=== PATIENT | female | born 1965 | race Caucasian/White ===

== ENCOUNTER 2016-11-09 11:15 | Observation (INO) | payer OTHER ==
[2016-11-09] MEDS ORDERED: NORMAL SALINE 1000 ML 1,000 ML IV ONE ×2 (11:53→18:26)
[2016-11-09] MEDS ORDERED: METRONIDAZOLE 500 MG/NS RTU 100 ML IV ONE (11:54)
[2016-11-09] MEDS ORDERED: LEVOFLOXACIN 500 MG/D5W RTU 100 ML IV ONE (11:54)
--- NOTE | 2016-11-09 12:16 | ER Document Report ---
ED General - General Chief Complaint: Post Surgical Pain Stated Complaint: POST OP PROBLEMS TRAVEL OUTSIDE OF THE [place] IN LAST 30 DAYS: No - HPI Patient complains to provider of: throat pain Notes: Patient was having a gastric bubble in place for dietary concerns removed today at a local GI's office during the procedure removal observe some difficulty and apparently cause a significant scratching the patient's throat. Dr Childers patient's GI physician did discuss were hospitalist for admission for airway observation. Patient was referred to the ER for initial evaluation. Upon the patient's arrival here patient resting comfortably with normal vital signs complaining of throat pain no difficulty breathing no difficulty in swallowing. - Related Data Allergies/Adverse Reactions: tetracycline [Tetracycline] Allergy (Severe, Verified 11/09/16 11:37) Generalized Itching wheat [Wheat] Allergy (Severe, Verified 11/09/16 11:37) amoxicillin [Amoxicillin] Adverse Reaction (Severe, Verified 11/09/16 11:37) Generalized Itching Past Medical History - Social History Smoking Status: Unknown if Ever Smoked Family History: CVA, DM, Hyperlipidemia, Malignancy - Past Medical History Cardiac Medical History: Reports: Hx Hypercholesterolemia, Hx Hypertension Denies: Hx Coronary Artery Disease, Hx Heart Attack Pulmonary Medical History: Reports: Hx Bronchitis - 2011, Hx Pneumonia - 2011 Denies: Hx Asthma, Hx COPD Neurological Medical History: Reports: Hx Migraine. Denies: Hx Cerebrovascular Accident, Hx Seizures Endocrine Medical History: Reports: Hx Hypothyroidism Renal/ Medical History: Reports: Hx Kidney Stones GI Medical History: Reports: Hx Irritable Bowel Musculoskeltal Medical History: Denies Hx Arthritis, Reports Hx Musculoskeletal Trauma Traumatic Medical History: Reports: Hx Fractures Past Surgical History: Reports: Hx Cholecystectomy, Hx Gynecologic Surgery - endometriosis surgery over 20 yrs ago, Hx Kidney (Renal Surgery) - stone. Denies: Hx Hysterectomy, Hx Pacemaker - Immunizations Immunizations up to date: Yes Hx Diphtheria, Pertussis, Tetanus Vaccination: Yes - 09/06/12 Hx Pneumococcal Vaccination: 09/06/00 Review of Systems - Review of Systems Constitutional: No symptoms reported EENT: Throat pain Cardiovascular: No symptoms reported Respiratory: No symptoms reported Gastrointestinal: No symptoms reported Genitourinary: No symptoms reported Female Genitourinary: No symptoms reported Musculoskeletal: No symptoms reported Skin: No symptoms reported Hematologic/Lymphatic: No symptoms reported Neurological/Psychological: No symptoms reported -: Yes All other systems reviewed and negative Physical Exam - Vital signs Vitals: Resp 16 11/09/16 11:15 Interpretation: Normal - General General appearance: Appears well, Alert - HEENT Head: Normocephalic, Atraumatic Eyes: Normal Conjunctiva: Normal Cornea: Normal Extraocular movements intact: Yes Eyelashes: Normal Pupils: PERRL Sinus: Normal, Swelling Mouth/Lips: Normal Mucous membranes: Normal Pharynx: Normal Neck: Normal - Respiratory Respiratory status: No respiratory distress Chest status: Nontender Breath sounds: Normal Chest palpation: Normal - Cardiovascular Rhythm: Regular Heart sounds: Normal auscultation Murmur: No - Abdominal Inspection: Normal Distension: No distension Bowel sounds: Normal Tenderness: Nontender Organomegaly: No organomegaly - Back Back: Normal, Nontender - Extremities General upper extremity: Normal inspection, Nontender, Normal color, Normal ROM , Normal temperature General lower extremity: Normal inspection, Nontender, Normal color, Normal ROM , Normal temperature, Normal weight bearing. No: Anika's sign - Neurological Neuro grossly intact: Yes Cognition: Normal Orientation: AAOx4 [place] Coma Scale Eye Opening: Spontaneous [place] Coma Scale Verbal: Oriented Dinesh Coma Scale Motor: Obeys Commands Dinesh Coma Scale Total: 15 Speech: Normal Motor strength normal: LUE, RUE, LLE, RLE Sensory: Normal - Psychological Associated symptoms: Normal affect, Normal mood - Skin Skin Temperature: Warm Skin Moisture: Dry Skin Color: Normal Course - Re-evaluation Re-evalutation: 11/09/16 15:45 Discussed with the hospitalist. Will admit to [facility]. Due to difficulty I was needed to place an IV in the patient's right before meals. This was done without difficulty. Patient will be covered with Levaquin and Flagyl per the hospitalist. Also undergo a CT scan of the neck patient will be admitted to the IMCU. - Vital Signs Vital signs: Temp Pulse Resp BP Pulse Ox 98.7 F 102 H 17 146/95 H 95 11/09/16 14:02 11/09/16 14:24 11/09/16 15:00 11/09/16 14:02 11/09/16 15:00 - Laboratory Result Diagrams: 11/09/16 13:56 11/09/16 13:56 Procedures - Additional Procedures IV placement Notes: 11/09/16 15:46 Using bedside ultrasound an IV was placed in the patient's right antecubital without difficulty Discharge - Discharge Clinical Impression: postop throat pain Disposition: ADMITTED OBSERVATION Admitting Provider: [facility] Hospitalist [facility] Unit Admitted: [place]
[2016-11-09] MEDS ORDERED: ONDANSETRON HCL INJ/PF 4 MG/2 ML SDV IV ONE (12:37)
[2016-11-09] MEDS ORDERED: PROCHLORPERAZINE EDISYLATE INJ 10 MG/2 ML VIAL IV ONE (12:37)
[2016-11-09] MEDS ORDERED: PROMETHAZINE HCL 25 MG SUPP.RECT PR PRN (13:34)
[2016-11-09] MEDS ORDERED: ONDANSETRON HCL INJ/PF 4 MG/2 ML SDV IV PRN (13:34)
[2016-11-09] MEDS ORDERED: ACETAMINOPHEN 325 MG TABLET PO PRN (13:34)
[2016-11-09] MEDS ORDERED: NORMAL SALINE 1000 ML 1,000 ML IV PRN (13:34)
[2016-11-09] MEDS ORDERED: LEVALBUTEROL HCL NEB 1.25 MG/3 ML AMPUL NEB PRN (13:34)
[2016-11-09] MEDS ORDERED: METOCLOPRAMIDE HCL ORAL SOLN 10 MG/10 ML UDCUP PO ONE (13:42)
[2016-11-09] MEDS ORDERED: LIDOCAINE 2% VISCOUS SOLN 20 ML UDCUP PO PRN (13:42)
[2016-11-09] MEDS ORDERED: MAG HYDROX/AL HYDROX/SIMETH SUSP 30 ML UDCUP PO PRN (13:42)
[2016-11-09] MEDS ORDERED: METOCLOPRAMIDE HCL ORAL SOLN 10 MG/10 ML UDCUP PO PRN (13:42)
[2016-11-09] MEDS ORDERED: LIDOCAINE 2% VISCOUS SOLN 20 ML UDCUP PO ONE (14:00)
[2016-11-09] MEDS ORDERED: MAG HYDROX/AL HYDROX/SIMETH SUSP 30 ML UDCUP PO ONE (14:00)
[2016-11-09] MEDS ORDERED: PANTOPRAZOLE SODIUM 40 MG VIAL IV ONE (14:00)
[2016-11-09] MEDS ORDERED: DEXAMETHASONE SOD PHOS INJ 10 MG/1 ML VIAL IV ONE (14:00)
[2016-11-09 14:15] LABS: ABSOLUTE LYMPHOCYTES (AUTO) 0.8 10^3/uL (0.5-4.7); ABSOLUTE MONOCYTES (AUTO) 0.1 10^3/uL (0.1-1.4); ABSOLUTE NEUT (AUTO) 10.3 10^3/uL (1.7-8.2); BASOPHILS % (AUTO) 0.3 % (0-2); EOSINOPHILS % (AUTO) 0.3 % (0-6); MEAN CORPUSCULAR HEMOGLOBIN 29.6 pg (27.0-33.4); MEAN CORPUSCULAR HGB CONC 33.4 g/dL (32.0-36.0); MEAN CORPUSCULAR VOLUME 89 fl (80-97); RED BLOOD COUNT 5.08 10^6/uL (3.72-5.28); RED CELL DISTRIBUTION WIDTH 14.2 % (11.5-14.0); SEGMENTED NEUTROPHILS % (AUTO) 91.4 % (42-78); WHITE BLOOD COUNT 11.2 10^3/uL (4.0-10.5)
[2016-11-09 14:25] LABS: ANION GAP 15 (5-19); BLOOD UREA NITROGEN 15 mg/dL (7-20); CALCIUM 9.8 mg/dL (8.4-10.2); CARBON DIOXIDE 23 mmol/L (22-30); CHLORIDE 103 mmol/L (98-107); CREATININE RESULT 0.81 mg/dL (0.52-1.25); GLUCOSE 125 mg/dL (75-110); LIPASE 112.4 U/L (23-300); POTASSIUM 4.3 mmol/L (3.6-5.0); SODIUM 141.2 mmol/L (137-145)
[2016-11-09] MEDS: MORPHINE SULFATE 10 MG/ML INJ IV PRN ×2 (17:07→23:26)
[2016-11-09] MEDS ORDERED: CALCIUM CITRATE PO SCH (18:00)
[2016-11-09] MEDS ORDERED: [UNRECOGNIZED DRUG - OTHER] PO SCH (18:00)
[2016-11-09] MEDS ORDERED: VITAMIN D3 PO SCH (18:00)
--- NOTE | 2016-11-09 19:38 | PDOC H&P ---
History of Present Illness Admission Date/PCP: 11/09/16 13:34 VIRAJ WILDER MD History of Present Illness: MATTHEW DUMAS is a 51 year old female who presents to the emergency department from Dr[facility] where patient had her intragastric balloon for weight loss removed. Patient developed complication requiring intubation and subsequent re-extubation there. Please see his operative note for complete details of this complication. Patient complains of a worst sore throat of her life. She denies any chest pain or shortness of breath. Patient reports she did not take her Synthroid this morning. Patient is referred to the hospitalist service for observation for possible airway compromise. Past Medical History Cardiac Medical History: Reports: Hyperlipidema, Hypertension Denies: Coronary Artery Disease, Myocardial Infarction Pulmonary Medical History: Reports: Bronchitis - 2011, Pneumonia - 2011 Denies: Asthma, Chronic Obstructive Pulmonary Disease (COPD) Neurological Medical History: Reports: Migraine Denies: Seizures Endocrine Medical History: Reports: Hypothyroidism GI Medical History: Reports: Other - IBS Recent intragastric balloon for weight loss Musculoskeltal Medical History: Denies: Arthritis Hematology: Reports: Anemia - IRON DEFICIENT Past Surgical History Past Surgical History: Reports: Cholecystectomy Denies: Hysterectomy, Pacemaker Social History Smoking Status: Never Smoker Frequency of Alcohol Use: Occasional Hx Recreational Drug Use: No Hx Prescription Drug Abuse: No - Advance Directive Resuscitation Status: Full Code Surrogate healthcare decision maker:: , surrogate decision maker Family History Family History: CVA, DM, Hyperlipidemia, Malignancy Parental Family History Reviewed: Yes Children Family History Reviewed: Yes Sibling(s) Family History Reviewed.: Yes Medication/Allergy Home Medications: Calcium Citrate/Vitamin D3 [Calcium Cit-Vit D 250-200 Tab] 2 tab PO BID Dexlansoprazole [Dexilant 60 mg Capsule] 60 mg PO DAILY 11/09/16 Duloxetine HCl [Cymbalta 20 mg Capsule.dr] 20 mg PO Q12 11/09/16 Fluoxetine HCl [Prozac 20 mg Capsule] 20 mg PO DAILY 11/09/16 Levothyroxine Sodium [Synthroid 0.05 mg Tablet] 50 mcg PO DAILY 11/09/16 Meloxicam [Mobic 7.5 mg Tablet] 7.5 mg PO DAILYP PRN 11/09/16 Omeprazole 40 mg PO BIDACBS 11/09/16 Sucralfate [Carafate Susp 1 gm/10 ml Udcup] 1 gm PO ACHS 11/09/16 Telmisartan/Hydrochlorothiazid [Telmisartan-Hctz 80-12.5 mg Tb] 1 tab PO DAILY 11/09/16 Allergies/Adverse Reactions: tetracycline [Tetracycline] Allergy (Severe, Verified 11/09/16 11:37) Generalized Itching wheat [Wheat] Allergy (Severe, Verified 11/09/16 11:37) amoxicillin [Amoxicillin] Adverse Reaction (Severe, Verified 11/09/16 11:37) Generalized Itching Review of Systems Constitutional: ABSENT: chills, fever(s), headache(s), weight gain, weight loss Eyes: ABSENT: visual disturbances Ears: ABSENT: hearing changes Nose, Mouth, and Throat: PRESENT: mouth pain, sore throat Cardiovascular: ABSENT: chest pain, dyspnea on exertion, edema, orthropnea, palpitations Respiratory: ABSENT: cough, hemoptysis Gastrointestinal: PRESENT: dysphagia, heartburn, nausea. ABSENT: abdominal pain , constipation, diarrhea, hematemesis, hematochezia, melena, vomiting Genitourinary: ABSENT: dysuria, hematuria Musculoskeletal: ABSENT: joint swelling Integumentary: ABSENT: rash, wounds Neurological: ABSENT: abnormal gait, abnormal speech, confusion, dizziness, focal weakness, syncope Psychiatric: ABSENT: anxiety, depression, homidical ideation, suicidal ideation Endocrine: ABSENT: cold intolerance, heat intolerance, polydipsia, polyuria Hematologic/Lymphatic: ABSENT: easy bleeding, easy bruising Physical Exam Vital Signs: Temp Pulse Resp BP Pulse Ox 97.4 F 76 13 139/95 H 99 11/09/16 11:23 11/09/16 11:23 11/09/16 13:00 11/09/16 12:41 11/09/16 13:00 General appearance: PRESENT: no acute distress, well-developed, well-nourished Head exam: PRESENT: atraumatic, normocephalic Eye exam: PRESENT: conjunctiva pink, EOMI, PERRLA. ABSENT: scleral icterus Ear exam: PRESENT: normal external ear exam. ABSENT: TM's normal bilaterally - bilateral serous effusion, left TM bulging TM, no erythema, Mouth exam: PRESENT: moist, tongue midline. ABSENT: neck supple - Patient with bilateral anterior cervical neck tenderness, right submandibular tenderness, Throat exam: PRESENT: post pharyngeal erythema, other - Posterior pharyngeal edema Neck exam: PRESENT: lymphadenopathy, tenderness - Bilateral submandibular, anterior cervical. ABSENT: JVD, thyromegaly, tracheal deviation Respiratory exam: PRESENT: clear to auscultation raphael. ABSENT: rales, rhonchi, wheezes Cardiovascular exam: PRESENT: RRR, +S1, +S2, tachycardia. ABSENT: diastolic murmur, gallop, rubs, systolic murmur Pulses: PRESENT: normal dorsalis pedis pul Vascular exam: PRESENT: normal capillary refill GI/Abdominal exam: PRESENT: hypoactive bowel sounds, soft. ABSENT: distended, firm, guarding, mass, Ortiz's sign, organolmegaly, rebound, rigid, tenderness Rectal exam: PRESENT: deferred Extremities exam: PRESENT: full ROM. ABSENT: calf tenderness, clubbing, pedal edema Neurological exam: PRESENT: alert, awake, oriented to person, oriented to place , oriented to time, oriented to situation, CN II-XII grossly intact. ABSENT: motor sensory deficit Psychiatric exam: PRESENT: appropriate affect, normal mood. ABSENT: homicidal ideation, suicidal ideation Skin exam: PRESENT: dry, intact, warm. ABSENT: cyanosis, rash Results Laboratory Results: 11/09/16 13:56 11/09/16 13:56 11/09/16 11/09/16 13:56 13:56 WBC 11.2 H RBC 5.08 Hgb 15.0 Hct 45.0 MCV 89 MCH 29.6 MCHC 33.4 RDW 14.2 H Plt Count 230 Seg Neutrophils % 91.4 H Lymphocytes % 7.0 L Monocytes % 1.0 L Eosinophils % 0.3 Basophils % 0.3 Absolute Neutrophils 10.3 H Absolute Lymphocytes 0.8 Absolute Monocytes 0.1 Absolute Eosinophils 0.0 Absolute Basophils 0.0 Sodium 141.2 Potassium 4.3 Chloride 103 Carbon Dioxide 23 Anion Gap 15 BUN 15 Creatinine 0.81 Est GFR ( Amer) > 60 Est GFR (Non-Af Amer) > 60 Glucose 125 H Calcium 9.8 Lipase 112.4 Assessment & Plan - Diagnosis (1) posterior pharyngeal trauma Is this a current diagnosis for this admission?: YesPlan: Have consulted both ENT as well as surgery. CT of the neck reveals free air. Will obtain CT of the chest and chest x-ray for evaluation for esophageal perforation. Place patient on Levaquin and Flagyl for coverage of GI sarina. Will give one dose of IV Decadron for patient's posterior pharyngeal swelling. (2) Hypertension Qualifiers: Hypertension type: essential hypertension Qualified Code(s): I10 - Essential (primary) hypertension Is this a current diagnosis for this admission?: YesPlan: We'll place when necessary hydralazine. Patient currently nothing by mouth but reports having taken one of her antihypertensives. (3) Hyperlipidemia Qualifiers: Hyperlipidemia type: unspecified Qualified Code(s): E78.5 - Hyperlipidemia, unspecified Is this a current diagnosis for this admission?: NoPlan: Continue home medication (4) Prediabetes Is this a current diagnosis for this admission?: Yes (5) Leukocytosis Qualifiers: Leukocytosis type: unspecified Qualified Code(s): D72.829 - Elevated white blood cell count, unspecified Is this a current diagnosis for this admission?: YesPlan: Have discussed with Dr. Cooper and will place patient on Levaquin and Flagyl to cover most GI pathogens. (6) obesity Is this a current diagnosis for this admission?: Yes (7) DVT prophylaxis Is this a current diagnosis for this admission?: YesPlan: DVT prophylaxis is with ANDREI hose. Patient is ambulatory and anticipate length of stay is less than 24 hours. - Time Time Spent: Greater than 70 Minutes Medications reviewed and adjusted accordingly: Yes Anticipated discharge: Home Within: within 48 hours - Inpatient Certification Based on my medical assessment, after consideration of the patient's comorbidities, presenting symptoms, or acuity I expect that the services needed warrant INPATIENT care.: No I certify that my determination is in accordance with my understanding of Medicare's requirements for reasonable and necessary INPATIENT services [42 CFR 412.3e].: No Medical Necessity: Need For IV Fluids, Need For Continuous Telemetry Monitoring , Need for Pain Control 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
--- NOTE | 2016-11-09 19:58 | PDOC CONSULTATION ---
Consultation Consult Date: 11/09/16 Attending physician:: MONTSERRAT CURRY Consult reason:: SQ air History of Present Illness Admission Date/PCP: 11/09/16 13:34 VIRAJ WILDER MD History of Present Illness: MATTHEW DUMAS is a 51 year old female who presents to the emergency department from Dr[facility] where patient had her intragastric balloon for weight loss removed. Patient developed complication requiring intubation and subsequent re-extubation there. Please see his operative note for complete details of this complication. Patient complains of a worst sore throat of her life. She denies any chest pain or shortness of breath. Patient reports she did not take her Synthroid this morning. Patient is referred to the hospitalist service for observation for possible airway compromise. Since in the emergency department patient developed difficulty swallowing, and soreness in the right side of her neck. She had a CT scan of the chest which showed no air in the mediastinum and no fluid in the left chest. The CT slices stopped at the apex of the chest. Neck was not visualized. At bedside now the patient is being examined by the ENT service. Past Medical History Cardiac Medical History: Reports: Hyperlipidema, Hypertension Denies: Coronary Artery Disease, Myocardial Infarction Pulmonary Medical History: Reports: Bronchitis - 2011, Pneumonia - 2011 Denies: Asthma, Chronic Obstructive Pulmonary Disease (COPD) Neurological Medical History: Reports: Migraine Denies: Seizures Endocrine Medical History: Reports: Hypothyroidism GI Medical History: Reports: Other - IBS Recent intragastric balloon for weight loss Musculoskeltal Medical History: Denies: Arthritis Hematology: Reports: Anemia - IRON DEFICIENT Past Surgical History Past Surgical History: Reports: Cholecystectomy Denies: Hysterectomy, Pacemaker Social History Smoking Status: Never Smoker Frequency of Alcohol Use: Occasional Hx Recreational Drug Use: No Hx Prescription Drug Abuse: No - Advance Directive Resuscitation Status: Full Code Family History Family History: CVA, DM, Hyperlipidemia, Malignancy Parental Family History Reviewed: Yes Children Family History Reviewed: Yes Sibling(s) Family History Reviewed.: Yes Medication/Allergy Home Medications: Calcium Citrate/Vitamin D3 [Calcium Cit-Vit D 250-200 Tab] 2 tab PO BID Dexlansoprazole [Dexilant 60 mg Capsule] 60 mg PO DAILY 11/09/16 Duloxetine HCl [Cymbalta 20 mg Capsule.] 20 mg PO Q12 11/09/16 Fluoxetine HCl [Prozac 20 mg Capsule] 20 mg PO DAILY 11/09/16 Levothyroxine Sodium [Synthroid 0.05 mg Tablet] 50 mcg PO DAILY 11/09/16 Meloxicam [Mobic 7.5 mg Tablet] 7.5 mg PO DAILYP PRN 11/09/16 Omeprazole 40 mg PO BIDACBS 11/09/16 Sucralfate [Carafate Susp 1 gm/10 ml Udcup] 1 gm PO ACHS 11/09/16 Telmisartan/Hydrochlorothiazid [Telmisartan-Hctz 80-12.5 mg Tb] 1 tab PO DAILY 11/09/16 Allergies/Adverse Reactions: tetracycline [Tetracycline] Allergy (Severe, Verified 11/09/16 11:37) Generalized Itching wheat [Wheat] Allergy (Severe, Verified 11/09/16 11:37) amoxicillin [Amoxicillin] Adverse Reaction (Severe, Verified 11/09/16 11:37) Generalized Itching Review of Systems Constitutional: PRESENT: as per HPI Eyes: PRESENT: as per HPI Ears: PRESENT: as per HPI Nose, Mouth, and Throat: PRESENT: as per HPI Physical Exam Vital Signs: Temp Pulse Resp BP Pulse Ox 98.7 F 102 H 17 128/87 H 92 11/09/16 14:02 11/09/16 14:24 11/09/16 18:01 11/09/16 18:01 11/09/16 18:01 General appearance: PRESENT: mild distress Head exam: PRESENT: normocephalic Eye exam: PRESENT: EOMI Mouth exam: PRESENT: other - Some swelling of the pharynx. No obvious bleeding. There is a subtle suggestion of subcutaneous emphysema on the right side of the neck. Neck exam: PRESENT: full ROM Respiratory exam: PRESENT: clear to auscultation raphael Cardiovascular exam: PRESENT: RRR Pulses: PRESENT: normal carotid pulses, normal radial pulses, normal femoral pulses GI/Abdominal exam: PRESENT: other - Soft nontender. Scars consistent previous surgery. Results Laboratory Results: 11/09/16 13:56 11/09/16 13:56 11/09/16 11/09/16 13:56 13:56 WBC 11.2 H RBC 5.08 Hgb 15.0 Hct 45.0 MCV 89 MCH 29.6 MCHC 33.4 RDW 14.2 H Plt Count 230 Seg Neutrophils % 91.4 H Lymphocytes % 7.0 L Monocytes % 1.0 L Eosinophils % 0.3 Basophils % 0.3 Absolute Neutrophils 10.3 H Absolute Lymphocytes 0.8 Absolute Monocytes 0.1 Absolute Eosinophils 0.0 Absolute Basophils 0.0 Sodium 141.2 Potassium 4.3 Chloride 103 Carbon Dioxide 23 Anion Gap 15 BUN 15 Creatinine 0.81 Est GFR ( Amer) > 60 Est GFR (Non-Af Amer) > 60 Glucose 125 H Calcium 9.8 Lipase 112.4 Impressions: Chest CT 11/09/16 00:00 IMPRESSION: NO SIGNIFICANT FINDING ON NON-CONTRASTED CHEST CT. Chest X-Ray 11/09/16 00:00 IMPRESSION: Minimal subsegmental atelectasis in the left lung base. No pneumomediastinum or pneumothorax. Soft Tissue Neck CT 11/09/16 11:51 IMPRESSION: Gas in the right floor of the mouth consistent with infectious process, probably dental origin. Clinical correlation is needed. If not dental origin, ENT consultation is recommended. Assessment & Plan - Diagnosis (1) posterior pharyngeal trauma Is this a current diagnosis for this admission?: YesPlan: 1. The impression is limited hypopharyngeal trauma following instrumentation of the oropharynx and esophagus status post weight loss balloon extraction. The patient is symptomatic but has limited findings on physical examination. The CT scan of the chest does not suggest mid or lower esophageal injury. 2. Agree with ENT oral pharyngeal examination. 3. I spoke with Dr. Moreland. Patient should be admitted to the hospital for observation, nothing by mouth status, IV fluids and intravenous antibiotics. The patient will likely improve clinically with no further intervention however cautious observation is recommended. - Time Time Spent: 50 to 70 Minutes Critical Time spent with patient: 15-24 minutes
[2016-11-09] MEDS: SUCRALFATE SUSP 1 GM/10 ML UDCUP PO SCH (21:56)
[2016-11-09] MEDS: DULOXETINE HCL 20 MG CAPSULE.DR PO SCH (21:59)
[2016-11-09] MEDS: METRONIDAZOLE 500 MG/NS RTU 100 ML IV SCH ×2 (22:02→23:26)
[2016-11-09] MEDS: LANSOPRAZOLE 15 MG TAB.RAP.DR PO SCH (22:02)
[2016-11-09] MEDS: NORMAL SALINE 1000 ML 1,000 ML IV PRN (23:31)
[2016-11-10] MEDS: METRONIDAZOLE 500 MG/NS RTU 100 ML IV SCH ×4 (05:12→23:53)
[2016-11-10] MEDS: LANSOPRAZOLE 15 MG TAB.RAP.DR PO SCH ×2 (05:15→16:14)
[2016-11-10 06:45] LABS: ABSOLUTE LYMPHOCYTES (AUTO) 1.1 10^3/uL (0.5-4.7); ABSOLUTE MONOCYTES (AUTO) 0.6 10^3/uL (0.1-1.4); ABSOLUTE NEUT (AUTO) 8.1 10^3/uL (1.7-8.2); BASOPHILS % (AUTO) 0.2 % (0-2); HGB HCT DIFFERENCE 0.8; LYMPHOCYTES % (AUTO) 11.5 % (13-45); MEAN CORPUSCULAR HEMOGLOBIN 29.8 pg (27.0-33.4); MEAN CORPUSCULAR HGB CONC 34.1 g/dL (32.0-36.0); MEAN CORPUSCULAR VOLUME 87 fl (80-97); MONOCYTES % (AUTO) 5.6 % (3-13); RED BLOOD COUNT 4.24 10^6/uL (3.72-5.28); RED CELL DISTRIBUTION WIDTH 14.1 % (11.5-14.0); SEGMENTED NEUTROPHILS % (AUTO) 82.7 % (42-78); WHITE BLOOD COUNT 9.8 10^3/uL (4.0-10.5)
[2016-11-10 06:56] LABS: HEMOGLOBIN 12.6 g/dL (12.0-15.5)
[2016-11-10] MEDS: SUCRALFATE SUSP 1 GM/10 ML UDCUP PO SCH ×4 (07:06→21:25)
[2016-11-10] MEDS: LEVOFLOXACIN 750 MG/D5W RTU 150 ML IV SCH (09:28)
[2016-11-10] MEDS: FLUOXETINE HCL 20 MG CAPSULE PO SCH (09:29)
[2016-11-10] MEDS: CALCIUM CARBONATE 250 MG/VITAMIN D3 125 UNIT TABLET PO SCH ×2 (09:29→17:39)
[2016-11-10] MEDS: LOSARTAN POTASSIUM 50 MG TABLET PO SCH (09:29)
[2016-11-10] MEDS: HYDROCHLOROTHIAZIDE 12.5 MG CAPSULE PO SCH (09:29)
[2016-11-10] MEDS: LEVOTHYROXINE SODIUM 0.05 MG TABLET PO SCH (09:29)
[2016-11-10] MEDS: DULOXETINE HCL 20 MG CAPSULE.DR PO SCH ×2 (09:29→21:25)
[2016-11-10] MEDS ORDERED: (PENDING PHARMACY ID) (Telmisartan/Hydrochlorothiazid [Telmisartan-Hctz 80-12.5 Mg Tb] 1 T PO SCH (10:00)
--- NOTE | 2016-11-10 10:33 | CONSULTATION REPORT E ---
Consultation Report NAME: MATTHEW DUMAS : 1965 AGE: 51Y DATE: 11/09/2016 331 A TO: ALEKSANDRA RAMON M.D. FROM: MONTSERRAT CURRY M.D. Requesting Physician REASON FOR CONSULTATION: Free air in the soft tissues of the pharynx. HISTORY OF PRESENT ILLNESS: Otolaryngology was asked to see this 51-year-old lady by Dr. Curry in the emergency department. This is a 51-year-old lady who had undergone removal of an [employer] balloon earlier on 11/09/[address] Ezequiel Childers. This had been done under deep sedation. Apparently, as this was being retrieved, there was a holdup during the extraction of the deflated balloon at about the level of the upper esophageal sphincter/cricopharyngeus area. The balloon became detached from the instrument and therefore, in order to relax the area, it was decided to intubate the patient. Accordingly general anesthesia was induced and an oral endotracheal tube was placed. Once that had been done, there was no further difficulty in retrieving the balloon and it was extracted promptly. Apparently it was reported that there was evidence of "soft tissue trauma and mild bleeding" at the time. Ciprofloxacin 400 mg was given intravenously during the procedure. Following all this, the patient was extubated without difficulty but because of the "abrasion" in the throat, when the patient was extubated and the level of pain that she had once she was awake, it was decided to transfer the patient from the office area to the emergency department. Dr. Curry evaluated the patient and decided to perform a contrast-enhanced axial CT scan of the soft tissues of the neck and she discussed this with Otolaryngology. That study was then reviewed remotely, and there was evidence of free air around the right mandible extending into the submandibular space and the soft tissues of the right pharynx, above the level of the vocal cords. Subsequent telephone conversation with Dr. Curry took place, and, rather than merely provide a 'telephone Consult', as had been agreed upon earlier, she requested that Otolaryngology formally consult on the patient in the emergency department. When the patient was seen, she appeared comfortable. She was lying in a semirecumbent position in the emergency department procedure room #3. Her was in attendance. Dr. Kraus also had been called and he arrived simultaneously. In the interval between the telephone conversation with Dr. Curry and this point in time, a chest CT scan had been performed, so Dr. Kraus and Otolaryngology reviewed that study synchronously. It appeared that no additional abnormality was evident on the chest CT. Specifically, there was no evidence of pneumatomediastinum or pneumothorax. PHYSICAL EXAMINATION: The patient was then examined. She was in no obvious distress apart from pain and tenderness in the right submandibular and parotid triangles. Specifically, there was no hoarseness, hot-potato voice, cough, drooling, trismus or stridor. In the head and neck region, the pupils were noted to be intact and reacting to light and accommodation. Cranial nerves III-XII were grossly intact. External ocular movements were full and equal. No nystagmus was detected. The ear canals were clear. Tympanic membranes appeared intact, translucent and delicate. Fork testing at 512 hertz was normal. The nose was clear. Oral exam revealed submucosal ecchymosis around the anterior pillar of the right tonsil, extending down to the retromolar trigone area and the adjacent junctional area of the posterior one-third and anterior two-thirds of the tongue on its lateral aspect. The tongue protrudes in the midline. The edges of the tongue are somewhat crenated from abutment with the lower teeth. The uvula and soft palate were normal and elevated in the midline. Indirect laryngoscopy was then performed and the true vocal cords were noted to move equally and well, and there did not appear to be extension of the submucosal bruising down the right pharyngeal wall or down into the larynx. Examination of the neck revealed tenderness in the right carotid and submandibular triangles. There could be air in the deeper soft tissues but certainly the palpation of the skin did not give the characteristic "Rice Krispy" effect of subcutaneous air. IMPRESSION: The impression is that there has been a mucosal laceration in the region of the cricopharyngeus on the right-hand side with air extravasation into the soft tissues together with bruising. RECOMMENDATION: The recommendation is for conservative management of this situation. Elevation of the head of the bed to 30 degrees is suggested. Judicious incremental advancement of her diet from fluids to soft foods would be in order. Close watch should be maintained on the patient's temperature. Any spikes in temperature should be reported immediately. Should there be any complications or deterioration in her condition, please feel free to call the Otolaryngology service through the office number, . DICTATING PHYSICIAN: ALEKSANDRA RAMON M.D. [id number] PHY#: [id number] ID: [id number] JOB#: [id number] ACCT: [id number] cc:ALEKSANDRA RAMON M.D. > MTDD
--- NOTE | 2016-11-10 10:34 | PDOC PROGRESS REPORT ---
Subjective Progress Note for:: 11/10/16 Subjective:: Patient states that her pain with swallowing has much improved from yesterday. Patient denies fever, chills, headache, new focal weakness, chest pain, shortness of breath, abdominal pain, nausea, vomiting, diarrhea, constipation. Patient was seen by Dr. Cervantes of ENT and advised to take a liquid diet for the next 24 hours. Physical Exam Vital Signs: Temp Pulse Resp BP Pulse Ox 97.6 F 62 18 122/70 98 11/10/16 07:13 11/10/16 08:49 11/10/16 07:13 11/10/16 07:13 11/10/16 07:13 Intake & Output 11/09/16 11/10/16 11/11/16 06:59 06:59 06:59 Intake Total 1129 Balance 1129 Weight 83.1 kg GENERAL: No acute distress HEENT: Conjunctiva clear, nonicteric, moist mucous membranes, no JVD, midline trachea. No crepitus noted over anterior neck RESPIRATORY: Clear to auscultation bilaterally, no wheezes, no rhonchi CARDIAC: Regular rate and rhythm, no murmurs/gallops/rubs ABDOMEN: Soft, nondistended, nontender, positive bowel sounds, no rebound, no guarding EXTREMETIES: No edema, cyanosis, clubbing NEUROLOGIC: Alert, oriented to person/place/time, CN's grossly intact, no focal deficits SKIN: No rash, wounds PSYCH: Normal mood, normal affect Results Laboratory Results: 11/10/16 06:07 11/09/16 13:56 11/09/16 11/09/16 11/10/16 13:56 13:56 06:07 WBC 11.2 H 9.8 RBC 5.08 4.24 Hgb 15.0 12.6 D Hct 45.0 37.0 MCV 89 87 MCH 29.6 29.8 MCHC 33.4 34.1 RDW 14.2 H 14.1 H Plt Count 230 227 Seg Neutrophils % 91.4 H 82.7 H Lymphocytes % 7.0 L 11.5 L Monocytes % 1.0 L 5.6 Eosinophils % 0.3 0.0 Basophils % 0.3 0.2 Absolute Neutrophils 10.3 H 8.1 Absolute Lymphocytes 0.8 1.1 Absolute Monocytes 0.1 0.6 Absolute Eosinophils 0.0 0.0 Absolute Basophils 0.0 0.0 Sodium 141.2 Potassium 4.3 Chloride 103 Carbon Dioxide 23 Anion Gap 15 BUN 15 Creatinine 0.81 Est GFR ( Amer) > 60 Est GFR (Non-Af Amer) > 60 Glucose 125 H Calcium 9.8 Lipase 112.4 Impressions: Chest CT 11/09/16 00:00 IMPRESSION: NO SIGNIFICANT FINDING ON NON-CONTRASTED CHEST CT. Chest X-Ray 11/09/16 00:00 IMPRESSION: Minimal subsegmental atelectasis in the left lung base. No pneumomediastinum or pneumothorax. Soft Tissue Neck CT 11/09/16 11:51 IMPRESSION: Gas in the right floor of the mouth consistent with infectious process, probably dental origin. Clinical correlation is needed. If not dental origin, ENT consultation is recommended. Assessment & Plan - Diagnosis (1) posterior pharyngeal trauma Is this a current diagnosis for this admission?: YesPlan: Patient was evaluated by Dr. Londono of ENT. We will continue liquid diet for the next 24 hours. Continue IV Levaquin and IV Flagyl. Possible discharge home in the morning if stable. (2) Hypothyroid Is this a current diagnosis for this admission?: YesPlan: Synthroid. (3) Hyperlipidemia Qualifiers: Hyperlipidemia type: unspecified Qualified Code(s): E78.5 - Hyperlipidemia, unspecified Is this a current diagnosis for this admission?: Yes (4) Hypertension Qualifiers: Hypertension type: essential hypertension Qualified Code(s): I10 - Essential (primary) hypertension Is this a current diagnosis for this admission?: YesPlan: Continue home medication. - Time Time Spent with patient: 35 or more minutes
[2016-11-10] MEDS: NORMAL SALINE 1000 ML 1,000 ML IV PRN ×2 (14:47→21:12)
[2016-11-10] MEDS: MORPHINE SULFATE 10 MG/ML INJ IV PRN (21:25)
[2016-11-11] MEDS: LANSOPRAZOLE 15 MG TAB.RAP.DR PO SCH (06:03)
[2016-11-11] MEDS: METRONIDAZOLE 500 MG/NS RTU 100 ML IV SCH (06:03)
[2016-11-11 09:41] VITALS: BP 138/75
[2016-11-11] MEDS: CALCIUM CARBONATE 250 MG/VITAMIN D3 125 UNIT TABLET PO SCH (09:47)
[2016-11-11] MEDS: LOSARTAN POTASSIUM 50 MG TABLET PO SCH (09:48)
[2016-11-11] MEDS: HYDROCHLOROTHIAZIDE 12.5 MG CAPSULE PO SCH (09:48)
[2016-11-11] MEDS: FLUOXETINE HCL 20 MG CAPSULE PO SCH (09:48)
[2016-11-11] MEDS: LEVOTHYROXINE SODIUM 0.05 MG TABLET PO SCH (09:49)
[2016-11-11] MEDS: SUCRALFATE SUSP 1 GM/10 ML UDCUP PO SCH (09:49)
[2016-11-11] MEDS: DULOXETINE HCL 20 MG CAPSULE.DR PO SCH (09:49)
[2016-11-11] MEDS: LEVOFLOXACIN 750 MG/D5W RTU 150 ML IV SCH (09:49)
--- NOTE | 2016-11-11 19:11 | PDOC DISCHARGE SUMMARY ---
General - Admit/Disc Date/PCP Admission Date/Primary Care Provider: 11/09/16 13:34 VIRAJ WILDER MD Discharge Date: 11/11/16 - Discharge Diagnosis (1) posterior pharyngeal trauma Is this a current diagnosis for this admission?: Yes (2) Hypothyroid Is this a current diagnosis for this admission?: Yes (3) Hyperlipidemia Is this a current diagnosis for this admission?: Yes (4) Hypertension Is this a current diagnosis for this admission?: Yes - Additional Information Resuscitation Status: Full Code Discharge Diet: Regular Discharge Activity: Activity As Tolerated Home Medications: Calcium Citrate/Vitamin D3 [Calcium Cit-Vit D 250-200 Tab] 2 tab PO BID Duloxetine HCl [Cymbalta 20 mg Capsule.dr] 20 mg PO Q12 11/09/16 Fluoxetine HCl [Prozac 20 mg Capsule] 20 mg PO DAILY 11/09/16 Levothyroxine Sodium [Synthroid 0.05 mg Tablet] 50 mcg PO DAILY 11/09/16 Meloxicam [Mobic 7.5 mg Tablet] 7.5 mg PO DAILYP PRN 11/09/16 Omeprazole 40 mg PO BIDACBS 11/09/16 Sucralfate [Carafate Susp 1 gm/10 ml Udcup] 1 gm PO ACHS 11/09/16 Telmisartan/Hydrochlorothiazid [Telmisartan-Hctz 80-12.5 mg Tb] 1 tab PO DAILY 11/09/16 Acetaminophen [Tylenol 325 mg Tablet] 650 mg PO Q4HP PRN tablet 11/11/16 Levofloxacin [Levaquin 750 mg Tablet] 750 mg PO DAILY #7 tablet 11/11/16 Metronidazole [Flagyl 500 mg Tablet] 500 mg PO TID #21 tablet 11/11/16 History of Present Illness Patient complains of: Throat pain History of Present Illness: MATTHEW DUMAS is a 51 year old female who presents to the emergency department [facility] where patient had her intragastric balloon for weight loss removed. Patient developed complication requiring intubation and subsequent re-extubation there. Please see his operative note for complete details of this complication. Patient complains of a worst sore throat of her life. She denies any chest pain or shortness of breath. Patient reports she did not take her Synthroid this morning. Patient is referred to the hospitalist service for observation for possible airway compromise. Hospital Course Hospital Course: Patient had posterior pharyngeal trauma during the procedure mentioned above. She was seen by ear nose and throat surgeon Dr. Londono and general surgeon Dr. Kraus during this hospitalization. She was managed conservatively with IV antibiotics and liquid diet. She is discharged home in stable condition to finish oral Levaquin and Flagyl. Physical Exam Vital Signs: Temp Pulse Resp BP Pulse Ox 98.2 F 67 16 138/75 H 98 11/11/16 09:59 11/11/16 09:59 11/11/16 09:59 11/11/16 08:07 11/11/16 09:59 Intake & Output 11/10/16 11/11/16 11/12/16 06:59 06:59 06:59 Intake Total 1129 3792 Output Total 2350 Balance 1129 1442 Weight 83.1 kg 83 kg GENERAL: No acute distress HEENT: Conjunctiva clear, nonicteric, moist mucous membranes, no JVD, midline trachea. No crepitus noted over anterior neck RESPIRATORY: Clear to auscultation bilaterally, no wheezes, no rhonchi CARDIAC: Regular rate and rhythm, no murmurs/gallops/rubs ABDOMEN: Soft, nondistended, nontender, positive bowel sounds, no rebound, no guarding EXTREMETIES: No edema, cyanosis, clubbing NEUROLOGIC: Alert, oriented to person/place/time, CN's grossly intact, no focal deficits SKIN: No rash, wounds PSYCH: Normal mood, normal affect Results Laboratory Results: 11/10/16 06:07 11/09/16 13:56 Impressions: Chest CT 11/09/16 00:00 IMPRESSION: NO SIGNIFICANT FINDING ON NON-CONTRASTED CHEST CT. Chest X-Ray 11/09/16 00:00 IMPRESSION: Minimal subsegmental atelectasis in the left lung base. No pneumomediastinum or pneumothorax. Soft Tissue Neck CT 11/09/16 11:51 IMPRESSION: Gas in the right floor of the mouth consistent with infectious process, probably dental origin. Clinical correlation is needed. If not dental origin, ENT consultation is recommended. Qualifiers PATEINT BEING DISCHARGED WITH ANY OF THE FOLLOWING DIAGNOSIS?: No Plan Time Spent: Less than 30 Minutes
== END 2016-11-11 10:18 | disposition home or self-care (01) ==
LOC: ER 11:15 → EH 13:34 → UNDOADMOB 14:03 → 3S 21:00
PROVIDERS: ADMIT Family Medicine; ATTEND Family Medicine
DX: K91.81 Other intraoperative complications of digestive system (principal); S10.11XA Abrasion of throat, initial encounter; Y65.8 Other specified misadventures during surgical and medical care; R73.03 Prediabetes; D72.829 Elevated white blood cell count, unspecified; I10 Essential (primary) hypertension; E66.9 Obesity, unspecified; E03.9 Hypothyroidism, unspecified; E78.5 Hyperlipidemia, unspecified
CPT/HCPCS: 99285; 36415 ×2; 87040; 83690; 85025 ×2; 80048; 71020; 70491; 71250; G0378 ×4; J1956 ×2; J2270 ×2; J3490 ×4; J7030 ×2; J1100